=== PATIENT | male | born 1950 | race Native Hawaiian/Other Pacific Islander ===

== ENCOUNTER 2017-10-30 11:17 | Outpatient (CLI) | payer BC, OTHER | END 2017-10-30 12:20 | disposition home or self-care (01) | LOC: RAD 11:17 | DX: R76.11 Nonspecific reaction to tuberculin skin test without active tuberculosis (principal); M1A.09X1 Idiopathic chronic gout, multiple sites, with tophus (tophi); Z79.899 Other long term (current) drug therapy ==

== ENCOUNTER 2021-06-28 09:12 | Outpatient (CLI) | payer BC, OTHER | END 2021-06-28 19:02 | disposition home or self-care (01) | LOC: US 09:12 | PROVIDERS: ATTEND Physician Assistant Medical | DX: L04.0 Acute lymphadenitis of face, head and neck (principal) ==

== ENCOUNTER 2021-12-02 07:57 | Outpatient (CLI) | payer BC, OTHER | END 2021-12-02 19:59 | disposition home or self-care (01) | LOC: CT 07:57 | PROVIDERS: ATTEND Nurse Practitioner Gerontology | DX: J84.89 Other specified interstitial pulmonary diseases (principal); R94.2 Abnormal results of pulmonary function studies ==

== ENCOUNTER 2022-05-31 07:06 | Outpatient (CLI) | payer BC, OTHER | END 2022-05-31 19:57 | disposition home or self-care (01) | LOC: CT 07:06 | PROVIDERS: ATTEND Nurse Practitioner Gerontology | DX: R94.2 Abnormal results of pulmonary function studies (principal); J84.10 Pulmonary fibrosis, unspecified; J84.9 Interstitial pulmonary disease, unspecified ==

== ENCOUNTER 2023-04-03 07:29 | Outpatient (CLI) | payer BC, OTHER | END 2023-04-03 19:04 | disposition home or self-care (01) | LOC: US 07:29 | PROVIDERS: ATTEND Nurse Practitioner Gerontology | DX: R59.0 Localized enlarged lymph nodes (principal) ==